=== PATIENT | male | born 1995 | race Hispanic/Latino ===

== ENCOUNTER 2024-06-01 15:26 | Emergency (ER) | payer SELFPAY ==
[2024-06-01 15:31] VITALS: BP 129/76
--- NOTE | 2024-06-01 18:25 | ED.GENMED ---
History of Present Illness
<Pinky Soria PA-C - Last Filed: 06/01/24 21:09>
General
Chief Complaint: Skin Surface Trauma
Source: patient
Exam Limitations: none
Time Seen by Provider: 06/01/24 18:24
Nursing documentation reviewed up to this point in time: agreed with
History of Present Illness
History of Present Illness:
29-year-old male with no past medical history presenting emergency department today with concerns of a laceration on his left forearm. 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
shrubbery with a knife and reports that he lost his balance and fell off the ladder and landed on both of his feet. He did not fall down or hit his head. He denies headache or neck pain. He denies loss consciousness. Patient states in the
process of following, he accidentally sliced his left arm while holding his knife. Patient denies any bony pain. Patient denies any loss of range of motion. Patient able to ambulate without any difficulties. Patient denies any allergies to any
medications. Patient states that his last tetanus vaccination was over 5 years ago. Patient is not taking anything today for pain.
Review of Systems
<Pinky Soria PA-C - Last Filed: 06/01/24 21:09>
Review of Systems
All Other Systems: ROS reviewed and negative except as documented in HPI and ROS
Phy Exam
<Pinky Soria PA-C - Last Filed: 06/01/24 21:09>
Physical Exam
Physical Exam:
General: Patient is well appearing and in no acute distress; non-toxic
Skin: Warm and dry, there is a 4.5 cm laceration to the anterior surface of the left forearm, it is actively bleeding. There is no foreign body, no tendon involvement. Brisk capillary refill.
Head: Normocephalic, atraumatic. No tenderness palpation of the facial bones.
Eyes: Sclera non-icteric. EOMs intact. PERRLA.
Neck: No tenderness palpation of the cervical spine, patient seen spontaneously moving cervical spine.
Cardiac: Regular rate
Peripheral Vascular: 2+ radial and ulnar pulses bilaterally.
Pulm: Normal respiratory effort
Musculoskeletal: 5 out of 5 strength in bilateral upper and lower extremities. No palpable bony deformities, no bony tenderness palpation.
Neuro: CN II-XII intact, no focal neurologic deficits. Sensation tact light touch bilaterally
Psychiatric: Appropriate mood and affect.
Course
<Pinky Soria PA-C - Last Filed: 06/01/24 21:09>
Orders/Labs/Results
Orders:
Orders
06/01/24 18:35
Tetanus/Diphth/Acelpertussis [Adacel] 0.5 ml IM .ONCE ONE
06/01/24 18:36
Acetaminophen [Tylenol] 1,000 mg PO NOW STA
Vital Signs
Initial and Last Documented VS:
Initial Vital Signs
Temp Pulse Resp BP Pulse Ox
98.0 F 74 18 129/76 99
06/01/24 15:31 06/01/24 15:31 06/01/24 15:31 06/01/24 15:31 06/01/24 15:31
Last Documented Vital Signs
Temp Pulse Resp BP Pulse Ox
98.0 F 78 16 126/74 99
06/01/24 15:31 06/01/24 19:00 06/01/24 19:00 06/01/24 19:00 06/01/24 19:00
<Constance Cardona MD - Last Filed: 06/01/24 20:02>
Orders/Labs/Results
Orders:
Orders
06/01/24 18:35
Tetanus/Diphth/Acelpertussis [Adacel] 0.5 ml IM .ONCE ONE
06/01/24 18:36
Acetaminophen [Tylenol] 1,000 mg PO NOW STA
Vital Signs
Initial and Last Documented VS:
Initial Vital Signs
Temp Pulse Resp BP Pulse Ox
98.0 F 74 18 129/76 99
06/01/24 15:31 06/01/24 15:31 06/01/24 15:31 06/01/24 15:31 06/01/24 15:31
Last Documented Vital Signs
Temp Pulse Resp BP Pulse Ox
98.0 F 78 16 126/74 99
06/01/24 15:31 06/01/24 19:00 06/01/24 19:00 06/01/24 19:00 06/01/24 19:00
Procedures
<Pinky Soria PA-C - Last Filed: 06/01/24 21:09>
Laceration Closure
Left Anterior Arm:
Status of Wound: clean
Size of Wound in cm: 4.5
Description of Wound Edges: sharp
Preparation: cleaned with saline
Anesthesia: 1% Lidocaine with epi
Revision/Debridement: routine- no revision
Wound exploration: explored to base- no FB
Type of Closure: single layer closure, layered closure and interrupted sutures
Skin Closure Material: 4-0 prolene and 4-0 chromic gut
Number of sutures: 10
Additional information:
1 deep dermal stitch placed, 9 simple interrupted stitches placed
<Pinky Soria PA-C - Last Filed: 06/01/24 21:09>
MDM/Problems Addressed
Differential Diagnosis Includes:
ddx include abrasion, laceration, foreign body
MDM/Problems Addressed:
Laceration:
29-year-old male with no past medical history presenting emergency department today with concerns of a laceration on his left forearm. 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
shrubbery with a knife and reports that he lost his balance and fell off the ladder and landed on both of his feet. Patient states that when he fell, he excellently cut himself with his knife. He endured a 4.5 cm laceration to left anterior
forearm. Laceration was repaired with sutures, patient tolerated procedure well. He is neurovascularly intact, has no bony tenderness palpation, no indication for x-ray imaging at this time his tetanus was updated. His pain was controlled with
Tylenol. Return precautions given, signs of infection discussed
Chronic conditions affecting care:
n/a
Acute Exacerbation and/or Progression of Chronic Illness:
n/a
<Pinky Soria PA-C - Last Filed: 06/01/24 21:09>
*Pulse Oximetry
Patient hypoxic: no
*Critical Care Note
Total Time (30-74mins, 75-104mins- exclusive of procedures): Not Applicable
Data Reviewed
Review of Other/Old Records Reveals: Records (No previous ER physician documentation to review) and Discharge Summary (no discharge summaries in [facility] to review)
Source: patient
<Pinky Soria PA-C - Last Filed: 06/01/24 21:09>
Patient Management
Escalation/DeEscalation of care consider admission/obs:
Admit not indicated, patient stable for discharge
ED Attending Note
<Pinky Soria PA-C - Last Filed: 06/01/24 21:09>
-
Portions of this chart may have been created with voice recognition software.� Occasional wrong word or��sound alike� substitutions may have occurred due to the inherent limitations of voice recognition software.
<Constance Cardona MD - Last Filed: 06/01/24 20:02>
ED Attending Note
Patient seen and examined by attending physician: Yes
I performed the substantive portion of visit, reviewed & personally made and approve the management plan that is documented in note by myself or JAIME.: Yes
ED Attending Note:
29-year-old man presenting to the emergency department with a forearm laceration. Patient states that he was on a ladder holding a sharp object when he fell and cut himself. He did not hit his head or lose consciousness. Bleeding was controlled.
He is unsure when he last received his tetanus shot. Denies any numbness tingling. No weakness. He was able to ambulate after the fall.
Vitals are unremarkable and exam does show a 4 cm laceration to the left forearm with adipose tissue. No obvious tendon seen. He does have full range of motion. Neurovascularly intact.
No bony tenderness.
Likely superficial laceration. Less likely to be a fracture. Will repair laceration. Patient's tetanus updated.
Discharge Plan
Departure
Patient Disposition: Home (Routine Discharge)
Date of Disposition: 06/01/24
Time of Disposition: 19:50
Patient with high blood pressure during this ER visit?: Yes
Condition: Good
Discharge Problem:
Arm laceration
Instructions: Wound Care (DC), Laceration Repair With Stitches (DC), BLOOD PRESSURE
Referrals:
NONE,* [Family Provider] -
Activity Restrictions/Additional Instructions:
Please report to the emergency department, your primary care provider, or urgent care to have your stitches removed in 10 to 12 days.
Please keep the wound dry for 24 to 48 hours. After this time, you can let mild warm soapy water run over the wound.
Signs of infection to return emergency department include purulent drainage from the wound, surrounding redness to the wound, fevers or chills, or increasing pain.
Please follow up with your primary care provider.
Interventions
Interventions:
*Nursing Disposition Last Done: 06/01/24 20:18
ED-Skin Assessment Last Done: 06/01/24 18:27
Discharge Date and Time
Discharge Date/Time: 06/01/24 20:19
Print Language: GREEK
[2024-06-01] MEDS: TYLENOL 1000 MG PO (18:57)
[2024-06-01] MEDS: ADACEL 0.5 ML IM (18:57)
[2024-06-01 19:00] VITALS: BP 126/74
== END 2024-06-01 20:19 | disposition home or self-care (01) ==
LOC: EMR 15:26
PROVIDERS: EMERGENCY PHYSICIAN Student in an Organized Health Care Education/Training Program
DX: S51.812A Laceration without foreign body of left forearm, initial encounter (principal); W26.0XXA Contact with knife, initial encounter; W11.XXXA Fall on and from ladder, initial encounter; Y93.H2 Activity, gardening and landscaping; Y92.89 Other specified places as the place of occurrence of the external cause; Y99.0 Civilian activity done for income or pay; Z23 Encounter for immunization; R03.0 Elevated blood-pressure reading, without diagnosis of hypertension
CPT/HCPCS: 13121; 99282; 90471; 90715